=== PATIENT | male | born 1980 | race Caucasian/White ===

== ENCOUNTER 2022-09-06 12:10 | Emergency (ER) | payer SELFPAY | END 2022-09-06 15:35 | disposition home or self-care (01) | LOC: JD.ED 12:10 → MERGE 12:10 → JD.ED 15:35 | DX: L03.115 Cellulitis of right lower limb (principal); M79.89 Other specified soft tissue disorders; Z72.0 Tobacco use | CPT/HCPCS: 36415; 80048; 85025; 85379; 99283 ==

== ENCOUNTER 2022-09-26 05:14 | Emergency (ER) | payer SELFPAY ==
[2022-09-26 06:19] LABS: ESTIMATED GFR 38 mL/min (>60)
[2022-09-26] MEDS ORDERED: Sodium Chloride 0.9% 1,000 ML IV SCH (06:45)
[2022-09-26] MEDS ORDERED: LORazepam 2 MG/ML SDV IVPUSH STA ×3 (07:14→08:09)
[2022-09-26] MEDS ORDERED: Iopamidol 755 Mg/ML 100 ML Bottle IVPUSH ONE (07:34)
[2022-09-26] MEDS ORDERED: Sodium Chloride 0.9% 10 ML Syringe FLUSH PRN (07:34)
[2022-09-26] MEDS ORDERED: Sodium Chloride 0.9% 100 ML IV SCH (07:45)
[2022-09-26] MEDS ORDERED: LORazepam 2 MG/ML SDV ONE (07:49)
[2022-09-26] MEDS ORDERED: propofoL 100 ML IV SCH (08:15)
== END 2022-09-26 08:58 ==
LOC: JD.ED 05:14
DX: I46.9 Cardiac arrest, cause unspecified (principal); F17.210 Nicotine dependence, cigarettes, uncomplicated; Z20.822 Contact with and (suspected) exposure to COVID-19
CPT/HCPCS: 31500; 36415; 36600; 70450; 71045; 71275; 80053; 80306; 80307; 82803; 82947; 83605; 83735; 83880; 84484; 85025; 85379; 85610; 85730; 92950; 93005; 96374; 99285; J2060; J2704; J3490; Q9967